=== PATIENT | male | born 1970 | race Two or more races ===

== ENCOUNTER 2018-09-16 09:01 | Emergency (ER) | payer MEDICAID ==
[~2018-09-16] VITALS: Ht 167.6 cm; Wt 72.6 kg
[2018-09-16 09:19] VITALS: BP 129/64
[2018-09-16] MEDS ORDERED: KETOROLAC TROMETH 60MG/2ML VIAL IM ONE (10:00)
== END 2018-09-16 10:34 | disposition home or self-care (01) ==
LOC: ER 09:01
DX: G43.909 Migraine, unspecified, not intractable, without status migrainosus (principal); R11.2 Nausea with vomiting, unspecified
CPT/HCPCS: 70450; 96372; 99284; J1885

== ENCOUNTER 2018-09-18 14:04 | Emergency (ER) | payer MEDICAID ==
[~2018-09-18] VITALS: Ht 185.4 cm; Wt 74.4 kg
[2018-09-18 16:09] LABS: Basophils # (auto) 0 uL; Basophils % (auto) 0.4 % (0.0-2.0); Eosinophils # (auto) 0.1 uL; Eosinophils % (auto) 1.1 % (0.0-7.0); Hematocrit 45.2 % (41.0-53.0); Lymphocytes % (auto) 15.8 % (10.0-50.0); Mean Corpuscular Hemoglobin 28.6 pg (28.0-32.0); Mean Corpuscular Hgb Conc. 33.1 g/dL (32.0-36.0); Mean Corpuscular Volume 86.4 fL (80.0-100.0); Monocytes # (auto) 0.6 uL; Monocytes % (auto) 8.7 % (0.0-12.0); Neutrophils # (auto) 4.8 uL; Nucleated Red Blood Cells % 0.1 %; Platelet Count (auto) 185 10^3/uL (140-450); Red Blood Cells 5.23 10^6/uL (4.5-5.90); White Blood Cell 6.5 10^3/uL (4.4-10.8)
[2018-09-18 16:18] LABS: Albumin 4.1 g/dL (3.4-5.0); Anion Gap 5 (5-15); Blood Urea Nitrogen 19 mg/dL (7-18); Calcium 8.4 mg/dL (8.5-10.1); Carbon Dioxide 26 mmol/L (21-32); Chloride 106 mmol/L (98-107); Glucose 93 mg/dL (74-106); Magnesium 2.3 mg/dL (1.6-2.6); Potassium 3.5 mmol/L (3.5-5.1); Sodium 137 mmol/L (136-145)
[2018-09-18 16:24] LABS: Alanine Aminotransferase 27 U/L (16-61); Alkaline Phosphatase 76 U/L (45-117); Aspartate Aminotransferase 17 U/L (15-37); BUN/Creatinine Ratio 19.8; Bilirubin, Total 0.4 mg/dL (0.2-1.0); GFR African American 108 mL/min; GFR Non-African American 89 mL/min; Total Protein 7.3 g/dL (6.4-8.2)
[2018-09-18] MEDS ORDERED: ACETAMINOPHEN 325 MG TAB PO ONE (20:00)
[2018-09-18 22:15] VITALS: BP 137/80
== END 2018-09-18 22:27 | disposition home or self-care (01) ==
LOC: ER 14:04
DX: B02.9 Zoster without complications (principal); R51 Headache
CPT/HCPCS: 36415; 70450; 71046; 80053; 83735; 84484; 85025; 93005; 94761

== ENCOUNTER 2020-06-24 14:36 | Emergency (ER) | payer MEDICAID ==
[~2020-06-24] VITALS: Ht 170.2 cm; Wt 75.3 kg
[2020-06-24 17:11] VITALS: BP 137/81
[2020-06-24] MEDS ORDERED: KETOROLAC TROMETH 60MG/2ML VIAL IM ONE (17:30)
== END 2020-06-24 18:14 | disposition home or self-care (01) ==
LOC: ER 14:36
DX: S33.5XXA Sprain of ligaments of lumbar spine, initial encounter (principal); Z87.442 Personal history of urinary calculi; X58.XXXA Exposure to other specified factors, initial encounter; Y93.89 Activity, other specified; Y92.89 Other specified places as the place of occurrence of the external cause; Y99.8 Other external cause status
CPT/HCPCS: 72100; 74176; 81002; 96372; 99284; J1885